=== PATIENT | female | born 1990 | race African-American/Black ===

== ENCOUNTER 2022-06-04 20:43 | Emergency (ER) | payer OTHER, SELFPAY ==
[2022-06-04 21:22] VITALS: BP 176/121; PULSE 97; RESP 19; TEMP 36.4; O2SAT 99; BMI 50.0
--- NOTE | 2022-06-05 02:39 | ED_ITS ---
HPI - Wound/Laceration General Chief Complaint: Wound/Laceration Stated Complaint: L hand laceration Time Seen by Provider: 06/05/22 02:14 Source: patient Mode of arrival: ambulatory Limitations: no limitations History of Present Illness HPI narrative: Patient accidentally stabbed her left form by the kitchen knife while she was cutting the sausages last tetanus shot was about 7 hrs ago able to move her fingers no sensory deficit normal Related Data Previous Rx's Medication Instructions Recorded amoxicillin 875 mg-potassium 1 tab PO BID #14 tabs 06/05/22 clavulanate 125 mg tablet Allergies Allergy/AdvReac Type Severity Reaction Status Date / Time No Known Allergies Allergy Verified 06/05/22 02:35 Review of Systems Review of Systems: Yes all other systems are reviewed and are negative [facility] Social History Social History Advance Directives: No Advance Directives Information Provided: No Physical Exam Vital Signs: Vital Signs: Last Vital Signs Temp 97.3 F 06/05/22 02:50 Pulse 88 06/05/22 03:19 Resp 18 06/05/22 03:19 BP 123/78 06/05/22 03:19 Pulse Ox 96 06/05/22 02:50 O2 Del Method 06/05/22 02:50 BMI result Body Mass Index 50.0 Extrem: Hand/finger images: 1. 0.5 cm puncture laceration left arm tenderness intact neurovascular intact Procedures Laceration Laceration 1: Site: upper extremity (Left hand) Side (If applicable): left Size (cm): 0.5 Description: linear and clean Depth: simple, single layer Size (cm): other (Dermabond) Discharge Plan Discharge Clinical Impression: Laceration Patient Disposition: Home, Self-Care Instructions: Laceration (ED) Additional Instructions: Local care as advised Take antibiotic to avoid infection Prescriptions: New amoxicillin-pot clavulanate 875-125 mg tablet 1 tab PO BID Qty: 14 0RF Interventions: ED Discharge Assessment Last Done: 06/05/22 03:34 Discharge Date/Time: 06/05/22 03:34
[2022-06-05 02:50] VITALS: BP 121/55; PULSE 89; RESP 17; TEMP 36.3; O2SAT 96
[2022-06-05 03:19] VITALS: BP 123/78; PULSE 88; RESP 18
[2022-06-05] MEDS: Diphth,Pertus(ACell),Tet Adult 0.5 ML SYRINGE IM (03:21)
[2022-06-05] MEDS: Amoxicillin/Potassium Clav 875 MG TABLET PO (03:21)
[2022-06-05] MEDS: amLODIPine Besylate 5 MG TABLET PO (03:21)
== END 2022-06-05 03:34 | disposition home or self-care (01) ==
PROVIDERS: Emergency Provider Internal Medicine
DX: S61.422A Laceration with foreign body of left hand, initial encounter (principal); W26.0XXA Contact with knife, initial encounter; Y93.G3 Activity, cooking and baking; Y92.010 Kitchen of single-family (private) house as the place of occurrence of the external cause; Y99.9 Unspecified external cause status
CPT/HCPCS: 12001; 90471; 90715; 99282; 99284